=== PATIENT | female | born 1945 | race Caucasian/White ===

== ENCOUNTER → 2018-12-20 | Outpatient (CLI) | payer MEDICARE ==
[~2018-12-20] MED LIST: ALBU90OI61 INH; BUSP15; DULO60 PO; ESTRTP VAG; FLUO20; GABA300 PO; GUAI120S1 PO; HYDACE5 PO; IBUP800; LACT10SY PO; LORA.5 PO; METTREX2.5 PO; Norco 7.5-3251 EACH PO; Omeprazole20 M1 PO; PROP60; RXHYDACE PO; Zithromax250 MG PO
[2018-12-20 15:46] LABS: Source, Urine Clean Catch
[2018-12-20 17:47] LABS: Appearance, Urine Clear (Clear); Bilirubin, Urine Neg (Neg); Blood, Urine 3+ (Neg); Color, Urine Yellow (P-Yellow); Glucose Qualitative, Urine Neg (Neg); Ketones, Urine Neg (Neg); Leukocyte Esterase, Urine 1+ (Neg); Nitrite, Urine Neg (Neg); Protein, Urine 3+ (Neg); Specific Gravity, Urine 1.015 (1.003-1.022); Urobilinogen, Urine NORM (Normal)
[2018-12-20 18:26] LABS: Bacteria Not Seen /hpf; Red Blood Cells, Urine 0-2 /hpf (0-2); Squamous Epithelial Cells Few /hpf (Few)
== END | disposition home or self-care (01) ==
LOC: LAB SRC 15:43 → LAB SHORT 15:43
PROVIDERS: Urology
DX: N39.0 Urinary tract infection, site not specified (principal)
CPT/HCPCS: 81001; 87086

== ENCOUNTER → 2019-05-17 | Outpatient (CLI) | payer MEDICARE | END | disposition home or self-care (01) | LOC: PLD 07:22 → LAB SHORT 07:22 | DX: L30.9 Dermatitis, unspecified (principal) | CPT/HCPCS: 88305; 88312 ==

== ENCOUNTER → 2019-08-08 | Outpatient (CLI) | payer MEDICARE | END | disposition home or self-care (01) | LOC: PLD 08:54 → LAB SHORT 08:54 | DX: D18.01 Hemangioma of skin and subcutaneous tissue (principal) | CPT/HCPCS: 88305 ==

== ENCOUNTER 2019-08-09 09:36 | Day surgery (SDC) | payer MEDICARE ==
--- NOTE | 2019-08-09 12:54 | NUR ---
ASSUMED CARE OF PATIENT AT 1230 FOR LUNCH COVERAGE. REPORT RECEIVED FROM TALIB WHARTON. PT RESTING ON STRETCHER WITH HOB 30 DEGREES ELEVATION. EYES CLOSED. SLOW DEEP EVEN BREATHING.
== END 2019-08-09 22:51 | disposition home or self-care (01) ==
LOC: RAD 09:36
DX: M47.816 Spondylosis without myelopathy or radiculopathy, lumbar region (principal); M48.061 Spinal stenosis, lumbar region without neurogenic claudication; M43.16 Spondylolisthesis, lumbar region; M41.9 Scoliosis, unspecified; M48.02 Spinal stenosis, cervical region
CPT/HCPCS: 62304; 72132; Q9966

== ENCOUNTER 2021-02-05 07:55 | Day surgery (SDC) | payer MEDICARE ==
[~2021-02-05] VITALS: Ht 160 cm; Wt 92.6 kg
[~2021-02-05 07:55] MED LIST changes: +CLOB.05TO; +COSENTYX P150 MG/1 M SC; +DICLOFENAC SOD100 G1; +DICLOFENAC SOD100 G1 TP; +Hydrocodone-Ap1 EA26 PO; +Norco 5-325 Ta1 EACH PO; +OMEP20ER PO
[2021-03-12] MEDS ORDERED: ALLEGRA ALLERG180 MG PO (08:55)
[2021-03-12] MEDS ORDERED: Estrace Vagin42.5 GM VAG (08:55)
[2021-03-12] MEDS ORDERED: DOXE10 PO (08:56)
[2021-03-12] MEDS ORDERED: METTREX2.5 PO (08:57)
[2021-03-12] MEDS ORDERED: CLOB.05TO TOP (09:00)
[2021-03-12] MEDS ORDERED: COSENTYX (150 MG/1 M SC (09:34)
== END 2021-02-05 10:02 | disposition home or self-care (01) ==
LOC: ORSCSDS 07:55
PROVIDERS: Surgery
PROC: 0DB58ZX Excision of Esophagus, Via Natural or Artificial Opening Endoscopic, Diagnostic (ICD-10-PCS; principal; 2021-02-05 09:15)
DX: K22.70 Barrett's esophagus without dysplasia (principal); K21.00 Gastro-esophageal reflux disease with esophagitis, without bleeding; F41.8 Other specified anxiety disorders; Z98.84 Bariatric surgery status; D64.9 Anemia, unspecified; E66.01 Morbid (severe) obesity due to excess calories; Z68.36 Body mass index [BMI] 36.0-36.9, adult; Z79.899 Other long term (current) drug therapy
CPT/HCPCS: 88305; J2704; J7120

== ENCOUNTER 2021-03-25 10:22 | Day surgery (SDC) | payer MEDICARE ==
[~2021-03-25] VITALS: Ht 157.5 cm; Wt 92.4 kg
[~2021-03-25 10:22] MED LIST changes: +ALLEGRA ALLERG180 MG PO; +CLOB.05TO TOP; +COSENTYX (150 MG/1 M SC; +DOXE10 PO; +Estrace Vagin42.5 GM VAG
--- NOTE | 2021-03-25 12:52 | NUR ---
VERY FRIENDLY PT. Ambulatory in Day Surgery, ASSIST WITH WC, BUT ABLE TO WALK SHIT DISTANCES. History, Chart, Medications and Allergies reviewed before start of procedure. Lungs clear T/O to Auscultation. Patient confirms NPO status and agrees with scheduled surgery.
--- NOTE | 2021-03-26 04:00 | NUR ---
URINATION PT GOT HERSELF OOB AND OVER TO [facility] D/T URGENCY AND STATES THAT SHE COULDN'T FIIND HER CALL [facility]. URINATED 50ML OF CONCENTRATED YELLOW URINE. DISCUSSED WITH HER POSSIBLE NEED TO DO A STRAIGHT CATH IF SHE DIDN'T HAVE SHUKLA URINE BY 6AM. STATED THAT HER GLENN HAS HAD TO FREQUESNTLY ASSIST HER WITH STRAIGHT CATHING AT HOME SINCE HERE RECTOCELE & VAGINAL VAULT RECONSTRUCTION. SAFETY MEASURES IN PLACE. WILL CONTINUE TO MONITOR.
[2021-03-26 04:36] LABS: BASOPHILS ABSOLUTE AUTO 0.01 K/mm3 (0.00-0.23); BASOPHILS PERCENT AUTO 0 % (0-2); EOSINOPHILS PERCENT AUTO 0 % (0-6); Hematocrit 33.6 % (33.0-51.0); Hemoglobin 10.5 g/dL (11.5-16.0); IMMATURE GRAN ABSOLUTE AUTO 0.03 K/mm3 (0.00-0.10); IMMATURE GRAN PERCENT AUTO 0 % (0-1); LYMPHOCYTES ABSOLUTE AUTO 0.68 K/mm3 (0.84-5.20); LYMPHOCYTES PERCENT AUTO 9 % (21-46); MONOCYTES ABSOLUTE AUTO 0.27 K/mm3 (0.16-1.47); MONOCYTES PERCENT AUTO 3 % (4-13); Mean Corpuscular HGB 30.9 pg (26.0-34.0); Mean Corpuscular HGB Conc 31.3 g/dL (31.5-36.5); Mean Corpuscular Volume 99 fL (80-100); Mean Platelet Volume 9.6 fL (9.1-12.4); NEUTROPHILS ABSOLUTE AUTO 6.88 K/mm3 (1.96-9.15); NEUTROPHILS PERCENT AUTO 88 % (41-73); Platelet Count 300 K/mm3 (150-400); RDW Coefficient Variation 14.3 % (11.7-14.2); RDW Standard Deviation 51.7 fL (35.1-46.3); White Blood Cell Count 7.87 K/mm3 (4.00-11.30)
[2021-03-26 04:54] LABS: Bun/Creatinine Ratio 12.4 (12.0-20.0); Calcium, Blood 8.1 mg/dL (8.5-10.1); Creatinine, Blood 1.13 mg/dL (0.40-1.00); Potassium, Blood 4.1 mmol/L (3.5-5.5)
--- NOTE | 2021-03-26 06:18 | NUR ---
SHIFT SUMMARY LYING IN SEMI FOWLERS WITH EYES CLOSED, HAS RESTED WELL THIS SHIFT. PAIN MANAGED WELL WITH SCHEDULED MEDS. AAO X4, NEVAREZ, FOLLOWS ALL COMMANDS. RESPIRATIONS EVEN AND UNLABORED ON O2 AT 2L/NC, WITH CLEAR LUNG SCHMIDT. PIV IS PATENT, INFUSING LR AT 70ML/HR. ABDOMEN SOFT AND NONDISTENDED. BOWEL TONES NOTED IN ALL QUADS. URINARY RETENTION, STRAIGHT CATH COMPLTETED AND 800ML OUTOUT NOTED. ABLE TO AMBULATE WITH FWW, GAIT BELT, AND SBA. DENIES PAIN, DISCOMFORT, OR FURTHER NEEDS AT THIS TIME. SAFETY MEASURES IN PLACE. WILL CONTINUE TO MONITOR FOR NEEDS/CHANGES AND ADDRESS NEEDED. WILL GIVE HAND OFF TO ONCOMING SHIFT USING SBAR DURING BEDSIDE REPORT.
[2021-03-26] MEDS ORDERED: ACET500 PO (11:35)
[2021-03-26] MEDS ORDERED: ASPI81CH PO (11:36)
[2021-03-26] MEDS ORDERED: OXYC5 PO (11:37)
--- NOTE | 2021-03-26 14:34 | NUR ---
VOID PT HAS NOT VOIDED. STRAIGHT CATHS AT HOME. DECLINED STRAIGHT CATH HERE, STATING WILL CATH WHEN ARRIVES HOME. SHOWERING AND THEN WILL DC.
--- NOTE | 2021-03-26 15:16 | NUR ---
DISCHARGED WENT OVER DISCHARGE INSTRUCTIONS WITH PT, VERBALIZED UNDERSTANDING. IV DC'D, CATHETER INTACT. PT STATED SHE WILL SELF CATHETERIZE HERSELF AT HOME AND SHE DID NOT WANT IT TO BE DONE IN THE HOSPITAL. PT LEFT FLOOR VIA W/C WITH DISCHARGE INSTRUCTIONS AND POSSESSIONS IN HAND TO RIDE WAITING OUTSIDE.
--- NOTE | 2021-03-26 15:20 | NUR ---
AGREE W/ARCHIVES DIRECTOR'S CHARTING/ASSESSMENT.
== END 2021-03-26 15:10 | disposition home or self-care (01) ==
LOC: ORSCMMR 10:22 → SURS 10:22 → ORSCMMR 10:23 → ORD 14:00 → SURS 17:30 → ORSCMMR 03-26 15:10
PROVIDERS: Orthopaedic Surgery
PROC: 8E0Y0CZ Robotic Assisted Procedure of Lower Extremity, Open Approach (ICD-10-PCS; principal; 2021-03-25 14:00)
PROC: 0SRC0JA Replacement of Right Knee Joint with Synthetic Substitute, Uncemented, Open Approach (ICD-10-PCS; principal; 2021-03-25 14:00)
DX: M17.11 Unilateral primary osteoarthritis, right knee (principal); K21.9 Gastro-esophageal reflux disease without esophagitis; N18.9 Chronic kidney disease, unspecified; J45.909 Unspecified asthma, uncomplicated; E66.01 Morbid (severe) obesity due to excess calories; Z68.37 Body mass index [BMI] 37.0-37.9, adult; Z79.899 Other long term (current) drug therapy
CPT/HCPCS: 27447; S2900; 36415; 73560-RT; 80048; 83735; 85025; 97110; 97110-CQ; 97116; 97116-CQ; 97161; 97530-CQ; A9270; C1776; J0171; J0690; J0735; J1100; J1170; J1885; J2250; J2370; J2405; J2704; J2795; J3010; J7120

== ENCOUNTER 2021-06-10 08:59 | Day surgery (SDC) | payer MEDICARE ==
[~2021-06-10 08:59] MED LIST changes: +ACET500 PO; +ASPI81CH PO; +OXYC5 PO
== END 2021-06-10 23:48 | disposition home or self-care (01) ==
LOC: MOI US 08:59 → MOI MAM 09:30 → MOI US 23:48
DX: C50.911 Malignant neoplasm of unspecified site of right female breast (principal); Z17.0 Estrogen receptor positive status [ER+]
CPT/HCPCS: 19083; 77065; 88305; 88342; 88360; A4648

== ENCOUNTER → 2021-08-25 | Outpatient (CLI) | payer MEDICARE | END | disposition home or self-care (01) | LOC: LAB 14:43 → LAB SHORT 14:43 | DX: N39.0 Urinary tract infection, site not specified (principal) | CPT/HCPCS: 87077; 87086; 87186 ==

== ENCOUNTER → 2021-10-29 | Outpatient (CLI) | payer MEDICARE ==
[2021-10-29 12:47] LABS: Source, Urine Clean Catch
[2021-10-29 13:27] LABS: Appearance, Urine Cloudy (Clear); Bilirubin, Urine Neg (Neg); Blood, Urine 2+ (Neg); Color, Urine Yellow (P-Yellow); Glucose Qualitative, Urine Neg (Neg); Ketones, Urine Neg (Neg); Leukocyte Esterase, Urine 2+ (Neg); Nitrite, Urine Neg (Neg); Protein, Urine 2+ (Neg); Urobilinogen, Urine NORM (Normal)
[2021-10-29 13:55] LABS: Bacteria Many /hpf; Squamous Epithelial Cells Few /hpf (Few); Transitional Epithelial Cells Few /hpf (0-Rare); White Blood Cells, Urine TNTC /hpf (0-5)
== END | disposition home or self-care (01) ==
LOC: LAB SHORT 12:45 → LAB 12:45 → LAB FUT 10-28 16:55
PROVIDERS: Physician Assistant
DX: R31.0 Gross hematuria (principal); R39.15 Urgency of urination; R35.0 Frequency of micturition; R30.0 Dysuria
CPT/HCPCS: 81001; 87077; 87086; 87186

== ENCOUNTER 2024-01-05 09:33 | Day surgery (SDC) | payer MEDICARE ==
[~2024-01-05] VITALS: Wt 90.8 kg
[~2024-01-05 09:33] MED LIST changes: +Lactated Ringer's 1,000 ML IV ONE; +propofoL 50 ML IV ONE
[2024-01-05] MEDS ORDERED: ANASTROZOLE1 M7 (10:41)
[2024-01-05] MEDS ORDERED: Norco 7.5-3251 EACH (10:42)
[2024-01-05] MEDS ORDERED: Lactated Ringer's 1,000 ML IV ONE (10:51)
[2024-01-05 11:46] VITALS: BP 117/84
== END 2024-01-05 11:45 | disposition home or self-care (01) ==
LOC: ORSCSDS 09:33
PROVIDERS: Surgery
PROC: 0DB58ZX Excision of Esophagus, Via Natural or Artificial Opening Endoscopic, Diagnostic (ICD-10-PCS; principal; 2024-01-05 11:00)
DX: K22.70 Barrett's esophagus without dysplasia (principal); K21.9 Gastro-esophageal reflux disease without esophagitis; F32.A Depression, unspecified; F41.9 Anxiety disorder, unspecified; Z98.84 Bariatric surgery status; Z68.34 Body mass index [BMI] 34.0-34.9, adult; Z79.899 Other long term (current) drug therapy
CPT/HCPCS: 88305; J2704; J7120

== ENCOUNTER 2024-05-25 19:11 | Emergency (ER) | payer MEDICARE ==
[~2024-05-25] VITALS: Ht 160 cm; Wt 86.2 kg
[~2024-05-25 19:11] MED LIST changes: +ANASTROZOLE1 M7; -Lactated Ringer's 1,000 ML IV ONE; +Norco 7.5-3251 EACH; -propofoL 50 ML IV ONE
[2024-05-25 20:12] LABS: BASOPHILS ABSOLUTE AUTO 0.04 K/mm3 (0.00-0.23); BASOPHILS PERCENT AUTO 1 % (0-2); EOSINOPHILS ABSOLUTE AUTO 0.22 K/mm3 (0.00-0.68); EOSINOPHILS PERCENT AUTO 3 % (0-6); Hematocrit 33.8 % (33.0-51.0); Hemoglobin 10.3 g/dL (11.5-16.0); IMMATURE GRAN ABSOLUTE AUTO 0.05 K/mm3 (0.00-0.10); IMMATURE GRAN PERCENT AUTO 1 % (0-1); LYMPHOCYTES ABSOLUTE AUTO 1.21 K/mm3 (0.84-5.20); LYMPHOCYTES PERCENT AUTO 16 % (21-46); MONOCYTES ABSOLUTE AUTO 0.42 K/mm3 (0.16-1.47); MONOCYTES PERCENT AUTO 6 % (4-13); Mean Corpuscular HGB 26.6 pg (26.0-34.0); Mean Corpuscular HGB Conc 30.5 g/dL (31.5-36.5); Mean Corpuscular Volume 87 fL (80-100); Mean Platelet Volume 9.3 fL (9.1-12.4); NEUTROPHILS ABSOLUTE AUTO 5.76 K/mm3 (1.96-9.15); NEUTROPHILS PERCENT AUTO 75 % (41-73); Platelet Count 370 K/mm3 (150-400); RDW Coefficient Variation 21.2 % (11.7-14.2); RDW Standard Deviation 66.5 fL (35.1-46.3); Red Blood Cell Count 3.87 M/mm3 (3.80-5.20)
[2024-05-25 20:45] LABS: Albumin, Blood 3.7 g/dL (3.4-5.0); Bilirubin, Total 0.5 mg/dL (0.1-1.0); Bun/Creatinine Ratio 18.3 (12.0-20.0); Calcium, Blood 8.2 mg/dL (8.5-10.1); Creatinine, Blood 1.09 mg/dL (0.40-1.00); Globulin, Blood 3.6 g/dL (2.2-4.0); Potassium, Blood 3.7 mmol/L (3.5-5.5); Total Protein, Blood 7.3 g/dL (6.4-8.2)
[2024-05-25] MEDS ORDERED: AMOCLA875 PO (23:19)
[2024-05-25] MEDS ORDERED: ONDA4ODT MM (23:19)
[2024-05-25] MEDS ORDERED: Amoxicillin/Clavulanate K 875 MG Tab PO ONE (23:20)
[2024-05-25] MEDS ORDERED: RX Prepack 2 Tabs Ondansetron ODT 4MG UD ONE (23:20)
[2024-05-25 23:45] VITALS: BP 143/86
== END 2024-05-25 23:57 | disposition home or self-care (01) ==
LOC: ER 19:11
PROVIDERS: Physician Assistant
DX: K57.32 Diverticulitis of large intestine without perforation or abscess without bleeding (principal); D64.9 Anemia, unspecified; L40.9 Psoriasis, unspecified; Z79.899 Other long term (current) drug therapy; Z90.49 Acquired absence of other specified parts of digestive tract
CPT/HCPCS: 74177; 80053; 83605; 83690; 85025; 93005; 93010; 99284-25; A9270; Q9967